=== PATIENT | female | born 1960 | race Caucasian/White ===

== ENCOUNTER 2023-04-26 11:08 | Outpatient (RCR) | payer BC, SELFPAY | END 2023-04-26 23:59 | disposition home or self-care (01) | LOC: ROT 11:08 | PROVIDERS: ATTENDING PHYSICIAN Physical Medicine & Rehabilitation; FAMILY PHYSICIAN Internal Medicine | DX: G91.9 Hydrocephalus, unspecified (principal); G93.0 Cerebral cysts; G81.94 Hemiplegia, unspecified affecting left nondominant side; I82.402 Acute embolism and thrombosis of unspecified deep veins of left lower extremity; R26.9 Unspecified abnormalities of gait and mobility; Z73.6 Limitation of activities due to disability | CPT/HCPCS: 97110; 97112; 97530; 97535 ==

== ENCOUNTER → 2023-09-09 14:41 | Outpatient (REF) | payer BC, SELFPAY | LOC: WDC 14:41 | PROVIDERS: ATTENDING PHYSICIAN Internal Medicine | DX: Z12.31 Encounter for screening mammogram for malignant neoplasm of breast (principal) | CPT/HCPCS: 77063; 77067 ==

== ENCOUNTER → 2023-09-24 11:12 | Outpatient (REF) | payer BC, SELFPAY | LOC: RAD 11:12 | PROVIDERS: ATTENDING PHYSICIAN Internal Medicine | DX: M25.561 Pain in right knee (principal); M25.562 Pain in left knee | CPT/HCPCS: 73564 ==

== ENCOUNTER → 2023-10-07 16:02 | Outpatient (REF) | payer BC, SELFPAY | LOC: RAD 16:02 | PROVIDERS: ATTENDING PHYSICIAN Internal Medicine | DX: Z86.718 Personal history of other venous thrombosis and embolism (principal); E03.9 Hypothyroidism, unspecified; E04.9 Nontoxic goiter, unspecified | CPT/HCPCS: 76536; 93970 ==

== ENCOUNTER → 2023-11-20 09:08 | Outpatient (REF) | payer BC, SELFPAY | LOC: RCS 09:08 | PROVIDERS: ATTENDING PHYSICIAN Specialist; FAMILY PHYSICIAN Internal Medicine | DX: I63.311 Cerebral infarction due to thrombosis of right middle cerebral artery (principal) | CPT/HCPCS: 93306 ==

== ENCOUNTER → 2025-01-30 14:29 | Outpatient (REF) | payer BC, SELFPAY | LOC: RAD 14:29 | PROVIDERS: ATTENDING PHYSICIAN Internal Medicine Endocrinology, Diabetes & Metabolism; FAMILY PHYSICIAN Internal Medicine | DX: E04.2 Nontoxic multinodular goiter (principal) | CPT/HCPCS: 76536 ==

== ENCOUNTER → 2025-02-22 13:34 | Outpatient (REF) | payer BC, SELFPAY | LOC: WDC 13:34 | PROVIDERS: ATTENDING PHYSICIAN Obstetrics & Gynecology Gynecology; FAMILY PHYSICIAN Internal Medicine | DX: Z12.31 Encounter for screening mammogram for malignant neoplasm of breast (principal) | CPT/HCPCS: 77063; 77067 ==

== ENCOUNTER → 2025-02-28 08:21 | Outpatient (REF) | payer BC, SELFPAY ==
[2025-02-28 08:46] VITALS: BP 168/75; BP_SYST 74
== END ==
LOC: RADI 08:21
PROVIDERS: ATTENDING PHYSICIAN Internal Medicine Endocrinology, Diabetes & Metabolism; FAMILY PHYSICIAN Internal Medicine
DX: E04.1 Nontoxic single thyroid nodule (principal)
CPT/HCPCS: 10005; 88173

== ENCOUNTER 2025-03-12 06:17 | Day surgery (SDC) | payer BC, SELFPAY | END 2025-03-12 09:58 | disposition home or self-care (01) | LOC: GI 06:17 | PROVIDERS: ATTENDING PHYSICIAN Internal Medicine | DX: Z12.11 Encounter for screening for malignant neoplasm of colon (principal); K62.1 Rectal polyp; Z86.0100 Personal history of colon polyps, unspecified | CPT/HCPCS: 45380; 88305 ==